=== PATIENT | male | born 1960 | race African-American/Black ===

== ENCOUNTER 2017-09-19 16:09 | Emergency (ER) | payer BC ==
[~2017-09-19] VITALS: Ht 185.4 cm; Wt 131.0 kg
[2017-09-19 16:13] VITALS: BP 144/88
[2017-09-19] MEDS ORDERED: ASPI-621 PO (16:52)
[2017-09-19] MEDS ORDERED: ALBU18HF INH (16:52)
[2017-09-19] MEDS ORDERED: HYDR25TA6 PO (16:52)
[2017-09-19] MEDS ORDERED: MOME13HF INH (16:52)
[2017-09-19] MEDS ORDERED: ERGO500017 PO (16:52)
[2017-09-19] MEDS ORDERED: LISI40TA PO (16:52)
[2017-09-19] MEDS ORDERED: ALBUTEROL/IPRATROPIUM 2.5MG/0.5MG, 3 ML ONE (16:53)
== END 2017-09-19 17:22 | disposition home or self-care (01) ==
LOC: ED 17:00
DX: R05 Cough (principal); J98.01 Acute bronchospasm; J45.909 Unspecified asthma, uncomplicated; I10 Essential (primary) hypertension
CPT/HCPCS: 71046; 93005; 94640; 99284; J7512

== ENCOUNTER 2018-01-29 09:44 | Emergency (ER) | payer BC ==
[~2018-01-29] VITALS: Ht 185.4 cm; Wt 132.5 kg
[~2018-01-29 09:44] MED LIST: ALBU18HF INH; ASPI-621 PO; ERGO500017 PO; HYDR25TA6 PO; LISI40TA PO; MOME13HF INH
[2018-01-29 09:46] VITALS: BP 164/123
[2018-01-29] MEDS ORDERED: LIDOCAINE-MPF 2% ,5ML ONE (10:20)
[2018-01-29] MEDS ORDERED: DIPH,PERTUSS(ACELL),TET VAC/PF 0.5 ML IM-VACC ONE ×2 (10:23→10:30)
[2018-01-29] MEDS ORDERED: LIDOCAINE-MPF 1%, 5ML INFIL ONE (10:30)
== END 2018-01-29 11:50 | disposition home or self-care (01) ==
LOC: ED 10:35
DX: L72.3 Sebaceous cyst (principal); I10 Essential (primary) hypertension; Z87.891 Personal history of nicotine dependence
CPT/HCPCS: 10060; 90471; 90715

== ENCOUNTER 2018-01-31 10:29 | Emergency (ER) | payer BC, MEDICAID ==
[~2018-01-31] VITALS: Ht 185.4 cm; Wt 131.2 kg
[2018-01-31 10:35] VITALS: BP 148/105
== END 2018-01-31 11:40 | disposition home or self-care (01) ==
LOC: ED 11:35
DX: Z48.01 Encounter for change or removal of surgical wound dressing (principal); I10 Essential (primary) hypertension; J45.909 Unspecified asthma, uncomplicated
CPT/HCPCS: 99281

== ENCOUNTER 2018-02-02 09:09 | Emergency (ER) | payer BC ==
[~2018-02-02] VITALS: Ht 185.4 cm; Wt 132.9 kg
[2018-02-02 09:10] VITALS: BP 148/89
== END 2018-02-02 10:20 | disposition home or self-care (01) ==
LOC: ED 10:00
DX: L02.212 Cutaneous abscess of back [any part, except buttock and flank] (principal); I10 Essential (primary) hypertension; J45.909 Unspecified asthma, uncomplicated
CPT/HCPCS: 99282